=== PATIENT | female | born 1935 | race Caucasian/White ===

== ENCOUNTER 2017-02-07 15:19 | Emergency (ER) | payer MEDICARE ==
[2017-02-07] MEDS ORDERED: KETOROLAC TROMETHAMINE 30 MG/ML VIAL ONE (16:41)
--- NOTE | 2017-02-07 16:57 | ER PHYSICIAN DOCUMENTATION ---
Physician Documentation [facility] Name:Griselda Madrigal Age:81 yrs Sex:Female :1935 Arrival Date:02/07/2017 Time:15:19 Bed4 Private MD: Hitesh Davalos Disposition: 02/07/17 16:33 Discharged to Home/Self Care. Impression: Rotator Cuff Injury. - Condition is Good. - Discharge Instructions: ROTATOR CUFF TEAR. - Medical Reconciliation form form. - Follow up: Private Physician; When: 1 week; Reason: Recheck today's complaints. - Problem is an acute exacerbation. - Symptoms have improved. HPI: 02/07 16:26 This 81 yrs old Female presents to ER via EMS with complaints of left arm sc pain. 16:26 The patient or guardian complains of pain, that is chronic. The complaints affect the sc anterior aspect of left shoulder and left bicep. Context: The problem was sustained at home, resulted from repetitive motion a lot of housecleaning today. Onset: The symptom(s)/episode began/occurred 2 hour(s) ago. Treatment prior to arrival includes: no previous treatment. Associated signs and symptoms: Pertinent positives: decreased range of motion, pain, Pertinent negatives: deformity, swelling, tingling. pain with range of motion, on specific point on anterior shoulder and distal biceps that is worse with palpation and reaching. Pt worried about association with cardiac dz. Historical: - Allergies: NKDA-; - Home Meds: 1. Carvediol 12.5 BID 2. atorvastatin 40 mg oral tab 1 tab once daily 3. amiloride 5 mg oral tab 1 tab once daily with food 4. Quinapril HCl Oral 12.5 5. Ecotrin 325 mg oral TbEC 1 tab once daily 6. Calcium Carbonate Oral 7. Vitamin C Oral - PMHx: HIGH CHOLESTEROL; HYPERTENSION; Dental Disorder (October 04, 2016); - PSHx: CHOLECYSECTOMY; APPENDECTOMY; Ovarian cyst; Cataracts; - Tetanus: unknown. - Ebola Screening: : Patient negative for fever greater than or equal to 101.5 degrees Fahrenheit, and additional compatible Ebola Virus Disease symptoms. Patient denies exposure to infectious person. Patient denies travel to an Ebola-affected area in the 21 days before illness onset. No symptoms or risks identified at this time. . - Immunization history: Pneumococcal vaccine status is unknown, Unable to Obtain. - Social history: The patient lives with family, with smoker(s), Smoking status: Patient states was never smoker of tobacco. ROS: 16:29 Constitutional: Negative for fever, chills, and weight loss. sc Eyes: Negative for injury, pain, redness, and discharge. ENT: Negative for injury, pain, and discharge. Neck: Negative for injury, pain, and swelling. Cardiovascular: Negative for chest pain, palpitations, and edema. Respiratory: Negative for shortness of breath, cough, wheezing, and pleuritic chest pain. Abdomen/GI: Negative for abdominal pain, nausea, vomiting, diarrhea, and constipation. Back: Negative for injury and pain. Skin: Negative for injury, rash, and discoloration. 16:29 Neuro: Negative for headache, weakness, numbness, tingling, and seizure. sc 16:29 MS/extremity: Positive for injury or acute deformity, pain. Exam: Constitutional: This is a well developed, well nourished patient who is awake, alert, and in no acute distress. Head/Face: Normocephalic, atraumatic. Eyes: Pupils equal round and reactive to light, extra-ocular motions intact. Lids and lashes normal. Conjunctiva and sclera are non-icteric and not injected. Cornea within normal limits. Periorbital areas with no swelling, redness, or edema. Chest/axilla: Normal chest wall appearance and motion. Nontender with no deformity. No lesions are appreciated. Cardiovascular: Regular rate and rhythm with a normal S1 and S2. No gallops, murmurs, or rubs. Normal PMI, no JVD. No pulse deficits. Respiratory: Lungs have equal breath sounds bilaterally, clear to auscultation and percussion. No rales, rhonchi or wheezes noted. No increased work of breathing, no retractions or nasal flaring. 16:29 Skin: Warm, dry with normal turgor. Normal color with no rashes, no lesions, and no sc evidence of cellulitis. 16:29 Musculoskeletal/extremity: Extremities: grossly normal except: noted in the anterior aspect of left shoulder and left bicep: ROM: full passive range of motion, limited active range of motion due to pain, Circulation is intact in all extremities. Sensation intact. Vital Signs: 15:22 BP 167 / 85; Pulse 67; Resp 16; Temp 98.4(O); Pulse Ox 90% on R/A; Weight 83.91 kg (R); arc Height 5 ft. 2 in. (157.48 cm) (R); Pain 6/10; 16:39 BP 155 / 67; Pulse 68; Resp 17; Pulse Ox 90% on R/A; tg 15:22 Body Mass Index 33.84 (83.91 kg, 157.48 cm) arc MDM: 15:54 Patient medically screened. tn 16:30 Differential diagnosis: tendonitis, rotator cuff vs cardiac vs other. Data reviewed: tn vital signs, nurses notes, and as a result, I will continue to observe the patient. ECG:. 17:22 EKG attached tg 02/07 15:31 Order name: 12-lead EKG; Complete Time: 15:51 tg EC:30 Rate is 65 beats/min. Rhythm is regular. QRS [place] is Normal. HI interval is normal. QRS sc interval is normal. QT interval is normal. No Q waves. T waves are Flattened. Clinical impression: Abnormal EKG without significant change. Interpreted by me. Reviewed by me. Dispensed Medications: 16:30 Drug: Toradol 15 mg; Route: IVP; Site: right antecubital; tg 16:52 Follow up: Response: No adverse reaction tg Signatures: Byron Miranda RN RN tg Jayla Russell RN RN Hitesh Painter MD MD tn
--- NOTE | 2017-02-07 16:57 | ER NURSING DOCUMENTATION ---
Nurse's Notes [facility] Name:Griselda Madrigal Age:81 yrs Sex:Female :1935 Arrival Date:02/07/2017 Time:15:19 Bed4 Private MD: Diagnosis:Rotator Cuff Injury Presentation: 02/07 15:24 Presenting complaint: Patient states: Left arm pain, began suddenly one hour ago while tg sitting down watching tv. Transition of care: patient was not received from another setting of care. 15:24 Acuity: TYRONE 3 tg 15:24 Method Of Arrival: EMS: 410 tg 15:32 Mechanism of Injury: No Mechanism of Injury. tg 16:39 Care prior to arrival: IV initiated. gauge and site 20g RAC. tg Triage Assessment: 15:31 General: Appears in no apparent distress, Behavior is cooperative. Pain: Complains of tg pain in left bicep. Neuro: Level of Consciousness is awake, alert. Cardiovascular: Capillary refill < 3 seconds. Respiratory: Airway is patent Respiratory effort is even, unlabored. Derm: Skin is pink, warm & dry. Musculoskeletal: Range of motion intact in all extremities. Historical: - Allergies: NKDA-; - Home Meds: 1. Carvediol 12.5 BID 2. atorvastatin 40 mg oral tab 1 tab once daily 3. amiloride 5 mg oral tab 1 tab once daily with food 4. Quinapril HCl Oral 12.5 5. Ecotrin 325 mg oral TbEC 1 tab once daily 6. Calcium Carbonate Oral 7. Vitamin C Oral - PMHx: HIGH CHOLESTEROL; HYPERTENSION; Dental Disorder (October 04, 2016); - PSHx: CHOLECYSECTOMY; APPENDECTOMY; Ovarian cyst; Cataracts; - Tetanus: unknown. - Ebola Screening: : Patient negative for fever greater than or equal to 101.5 degrees Fahrenheit, and additional compatible Ebola Virus Disease symptoms. Patient denies exposure to infectious person. Patient denies travel to an Ebola-affected area in the 21 days before illness onset. No symptoms or risks identified at this time. . - Immunization history: Pneumococcal vaccine status is unknown, Unable to Obtain. - Social history: The patient lives with family, with smoker(s), Smoking status: Patient states was never smoker of tobacco. Screenin:26 Infectious Disease Risk Unable to Obtain. Nutritional screening: No deficits noted. tg 15:50 Abuse screen: Denies threats or abuse. Denies injuries from another. tg Assessment: 15:32 See Triage Assessment done by same RN. tg 15:32 Reassessment: Pt very [place]. 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 [place]. Pt lives with her daughter.. 15:45 Cardiovascular: Rhythm is sinus rhythm. tg 15:51 Neuro: Oriented to person, place, event. tg 16:40 Reassessment: Pt's daughter arrived, is in the room with pt. Pt ambulated to bathroom tg with steady gait. . 16:55 Reassessment: Getting redressed, pt able to move both arms with no sign of pain or tg discomfort. Vital Signs: 15:22 BP 167 / 85; Pulse 67; Resp 16; Temp 98.4(O); Pulse Ox 90% on R/A; Weight 83.91 kg (R); arc Height 5 ft. 2 in. (157.48 cm) (R); Pain 6/10; 16:39 BP 155 / 67; Pulse 68; Resp 17; Pulse Ox 90% on R/A; tg 15:22 Body Mass Index 33.84 (83.91 kg, 157.48 cm) arc ED Course: 15:21 Patient arrived in ED. jt 15:24 Byron Miranda, EUFEMIA is Primary Nurse. tg 15:25 Hitesh Pulido MD is Attending Physician. sc 15:25 Triage completed. tg 15:26 Valuables Remains with patient Patient has correct armband on for positive tg identification. Placed in gown. Bed in low position. Call light in reach. Side rails up X2. 15:33 EKG done. (by ED staff). Reviewed by Byron Miranda RN. arc 16:40 Maintain field IV. Dressing intact. Site clean & dry. tg 17:22 EKG attached tg Administered Medications: 16:30 Drug: Toradol 15 mg; Route: IVP; Site: right antecubital; tg 16:52 Follow up: Response: No adverse reaction tg Outcome: 16:33 Discharge ordered by . sc 16:56 Patient left the ED. tg 17:00 Discharged to home ambulatory, with family. tg 17:00 Condition: stable 17:00 Discharge Assessment: Patient awake and alert. 17:00 Discharge instructions given to patient, family, Instructed on discharge instructions, follow up and referral plans. 17:00 IV D/Bird 02/08 14:50 Discharge F/U Call: Unable to reach: non-working number lc Signatures: Byron Miranda RN RN tg Coleman, Linda, RN RN lc Chew, Scott, MD MD sc Chew, Amelia, Mercy Peguero
== END 2017-02-07 16:57 | disposition home or self-care (01) ==
LOC: ER 15:19
DX: S49.82XA Other specified injuries of left shoulder and upper arm, initial encounter (principal); X50.3XXA Overexertion from repetitive movements, initial encounter; Y92.019 Unspecified place in single-family (private) house as the place of occurrence of the external cause; Y93.E5 Activity, floor mopping and cleaning; I10 Essential (primary) hypertension; Z79.899 Other long term (current) drug therapy; Z74.3 Need for continuous supervision
CPT/HCPCS: 93005; 96374; 99283; J1885